=== PATIENT | female | born 1990 | race Caucasian/White ===

== ENCOUNTER 2018-06-20 10:42 | Inpatient (IN) | payer OTHER ==
[~2018-06-20] VITALS: Ht 182.9 cm; Wt 59.6 kg
[~2018-06-20 10:42] MED LIST: CAPE500T24 PO; DENO120V SC
[2018-06-20] MEDS ORDERED: POLYETHYLENE GLYCOL 17 GM PACKET PO PRN (12:30)
[2018-06-20] MEDS ORDERED: morphine SULFATE 10 MG/ML, 1ML IVPush PRN (12:30)
[2018-06-20] MEDS ORDERED: LABETALOL 5MG/ML, 20ML IVPush PRN (12:30)
[2018-06-20] MEDS ORDERED: OXYcodone IR 5MG TABLET PO PRN (12:30)
[2018-06-20] MEDS ORDERED: ENALAPRILAT 1.25 MG/ML, 2ML IVPush PRN (12:30)
[2018-06-20] MEDS: SODIUM CHLORIDE 0.9% 1,000 ML IV SCH ×2 (12:47→23:53)
[2018-06-20] MEDS: PLEASE ENTER HEIGHT AND WEIGHT MC SCH ×2 (13:00→15:32)
[2018-06-20] MEDS ORDERED: LORazepam 2 MG/ML, 1ML ONE (13:07)
[2018-06-20] MEDS ORDERED: FILTER 0.22 MICRON IV ONE (14:30)
[2018-06-20] MEDS: LORazepam 2 MG/ML, 1ML IVPush PRN (14:30)
[2018-06-20] MEDS ORDERED: PHENYTOIN SODIUM 1,000 MG in SODIUM CHLORIDE 0.9% 100 ML IV ONE (14:30)
[2018-06-20] MEDS: LEVETIRACETAM 1,000 MG in SODIUM CHLORIDE 0.9% 100 ML IV SCH (15:32)
[2018-06-20 18:39] VITALS: BP 110/50
[2018-06-21] MEDS: LEVETIRACETAM 1,000 MG in SODIUM CHLORIDE 0.9% 100 ML IV SCH ×2 (02:16→14:03)
[2018-06-21] MEDS: ONDANSETRON 2MG/ML, 2ML IVPush PRN ×3 (04:11→18:06)
[2018-06-21 04:23] LABS: BASOPHILS # (AUTO) 0.01 x10^3/uL (0-0.1); BASOPHILS % (AUTO) 0 % (0-1); EOSINOPHILS % (AUTO) 0 % (1-7); LYMPHOCYTES # (AUTO) 1.49 x10^3/uL (1-3.4); LYMPHOCYTES % (AUTO) 10 % (22-44); MD NO; MEAN CORPUSCULAR HEMOGLOBIN 28.8 pg (27.0-34.8); MEAN CORPUSCULAR HGB CONC 33.3 g/dL (32.4-35.8); MEAN CORPUSCULAR VOLUME 86.4 fL (80-100); MEAN PLATELET VOLUME 7.1 fL (7.4-10.4); MONOCYTES # (AUTO) 0.88 x10^3/uL (0.2-0.8); MONOCYTES % (AUTO) 6 % (2-9); NEUTROPHILS % (AUTO) 83 % (42-75); PLATELET COUNT 317 x10^3/uL (130-400); RED BLOOD COUNT 4.07 x10^6/uL (3.82-5.3); RED CELL DISTRIBUTION WIDTH 16.7 % (9.6-15.2)
[2018-06-21 04:35] LABS: ALBUMIN 3.9 g/dL (3.4-5.0); ANION GAP 7 mmol/L (5-15); CALCIUM 7.9 mg/dL (8.5-10.1); CHLORIDE 96 mmol/L (98-107)
[2018-06-21 04:38] LABS: ALANINE AMINOTRANSFERASE 31 U/L (12-78); ALKALINE PHOSPHATASE 102 U/L (45-117); BILIRUBIN,TOTAL 0.7 mg/dL (0.2-1.0); CREATININE 0.46 mg/dL (0.55-1.02); TOTAL PROTEIN 7.2 g/dL (6.4-8.2)
[2018-06-21 05:00] VITALS: BP 142/85
[2018-06-21] MEDS: SENNA/DOCUSATE TABLET PO SCH (09:00)
[2018-06-21] MEDS ORDERED: POTASSIUM CHLORIDE 20 MEQ in SODIUM CHLORIDE 0.9% 1,000 ML IV SCH (12:30)
[2018-06-21] MEDS: DEXAMETHASONE 4 MG/ML, 1ML IVPush SCH ×2 (14:03→19:32)
[2018-06-21] MEDS: POTASSIUM CHLORIDE 20 MEQ in SODIUM CHLORIDE 0.9% 1,000 ML IV SCH (16:46)
[2018-06-22] MEDS: DEXAMETHASONE 4 MG/ML, 1ML IVPush SCH ×4 (01:37→19:52)
[2018-06-22] MEDS: ONDANSETRON 2MG/ML, 2ML IVPush PRN ×3 (01:37→16:55)
[2018-06-22] MEDS: LEVETIRACETAM 1,000 MG in SODIUM CHLORIDE 0.9% 100 ML IV SCH ×2 (01:39→13:48)
[2018-06-22 04:00] VITALS: BP 140/87
[2018-06-22 04:26] LABS: BASOPHILS % (AUTO) 0 % (0-1); EOSINOPHILS % (AUTO) 0 % (1-7); LYMPHOCYTES # (AUTO) 1.19 x10^3/uL (1-3.4); LYMPHOCYTES % (AUTO) 11 % (22-44); MD NO; MEAN CORPUSCULAR HEMOGLOBIN 28.1 pg (27.0-34.8); MEAN CORPUSCULAR HGB CONC 32.8 g/dL (32.4-35.8); MEAN CORPUSCULAR VOLUME 85.8 fL (80-100); MEAN PLATELET VOLUME 7.4 fL (7.4-10.4); MONOCYTES # (AUTO) 0.83 x10^3/uL (0.2-0.8); MONOCYTES % (AUTO) 8 % (2-9); NEUTROPHILS # (AUTO) 8.97 x10^3/uL (1.8-6.8); NEUTROPHILS % (AUTO) 82 % (42-75); PLATELET COUNT 319 x10^3/uL (130-400); RED BLOOD COUNT 4.45 x10^6/uL (3.82-5.3); RED CELL DISTRIBUTION WIDTH 16.9 % (9.6-15.2)
[2018-06-22 04:32] LABS: ANION GAP 6 mmol/L (5-15); CALCIUM 8.2 mg/dL (8.5-10.1); CHLORIDE 107 mmol/L (98-107); CREATININE 0.55 mg/dL (0.55-1.02)
[2018-06-22] MEDS: POTASSIUM CHLORIDE 20 MEQ in SODIUM CHLORIDE 0.9% 1,000 ML IV SCH (06:44)
[2018-06-22] MEDS: SENNA/DOCUSATE TABLET PO SCH (07:43)
[2018-06-22] MEDS: HEPARIN 5,000 UNITS/ML, 1ML SQ SCH ×2 (10:21→18:00)
[2018-06-22] MEDS ORDERED: POTASSIUM CHLORIDE 20 MEQ TAB.ER.PRT PO ONE (11:00)
[2018-06-22 15:28] VITALS: BP 140/92
[2018-06-22] MEDS: ACETAMINOPHEN 325 MG TABLET PO PRN (19:52)
[2018-06-22] MEDS: LORazepam 2 MG/ML, 1ML IVPush PRN (20:30)
[2018-06-22 21:22] VITALS: BP 149/103
[2018-06-23] MEDS: LEVETIRACETAM 1,000 MG in SODIUM CHLORIDE 0.9% 100 ML IV SCH (01:07)
[2018-06-23 01:08] VITALS: BP 142/94
[2018-06-23] MEDS: DEXAMETHASONE 4 MG/ML, 1ML IVPush SCH ×3 (01:09→13:51)
[2018-06-23] MEDS: HEPARIN 5,000 UNITS/ML, 1ML SQ SCH ×3 (01:09→18:07)
[2018-06-23] MEDS: ONDANSETRON 2MG/ML, 2ML IVPush PRN ×4 (03:57→22:09)
[2018-06-23] MEDS: SENNA/DOCUSATE TABLET PO SCH (07:50)
[2018-06-23 08:05] VITALS: BP 140/96
[2018-06-23] MEDS: ACETAMINOPHEN 325 MG TABLET PO PRN (08:08)
[2018-06-23] MEDS: LEVETIRACETAM 500 MG TABLET PO SCH ×2 (10:08→22:09)
[2018-06-23 13:30] VITALS: BP 140/86
[2018-06-23] MEDS: LORazepam 2 MG/ML, 1ML IVPush PRN (19:25)
[2018-06-23 20:42] VITALS: BP 146/104
[2018-06-24 00:54] VITALS: BP 138/93
[2018-06-24] MEDS: HEPARIN 5,000 UNITS/ML, 1ML SQ SCH ×2 (02:17→07:53)
[2018-06-24] MEDS: ONDANSETRON 2MG/ML, 2ML IVPush PRN ×2 (03:52→13:15)
[2018-06-24] MEDS: SENNA/DOCUSATE TABLET PO SCH (07:53)
[2018-06-24] MEDS: LORazepam 2 MG/ML, 1ML IVPush PRN (07:53)
[2018-06-24] MEDS: LEVETIRACETAM 500 MG TABLET PO SCH (07:53)
[2018-06-24 07:55] VITALS: BP 146/95
[2018-06-24 13:15] VITALS: BP 147/98
[2018-06-24 14:23] VITALS: BP 144/93
[2018-06-24] MEDS ORDERED: OXYC5SOL8 PO (14:37)
[2018-06-24] MEDS ORDERED: ONDA4TAB13 SL (14:37)
[2018-06-24] MEDS ORDERED: LORA2ORA2 PO (14:37)
[2018-06-24] MEDS ORDERED: PROC5TAB40 PO (14:37)
[2018-06-24] MEDS ORDERED: DEXA4TAB66 PO (14:37)
[2018-06-24] MEDS ORDERED: LEVE500T53 PO (14:37)
== END 2018-06-24 16:00 | disposition home or self-care (01) | DRG 100 ==
LOC: CCU 12:00 → 3NW 06-22 15:02
PROVIDERS: ADMIT Internal Medicine; ATTEND Internal Medicine
DX: G40.209 Localization-related (focal) (partial) symptomatic epilepsy and epileptic syndromes with complex partial seizures, not intractable, without status epilepticus (principal); E43 Unspecified severe protein-calorie malnutrition; C79.49 Secondary malignant neoplasm of other parts of nervous system; C79.31 Secondary malignant neoplasm of brain; C79.51 Secondary malignant neoplasm of bone; C78.7 Secondary malignant neoplasm of liver and intrahepatic bile duct; B00.9 Herpesviral infection, unspecified; A60.9 Anogenital herpesviral infection, unspecified; D63.8 Anemia in other chronic diseases classified elsewhere; Z51.5 Encounter for palliative care; E55.9 Vitamin D deficiency, unspecified; F12.90 Cannabis use, unspecified, uncomplicated; H47.619 Cortical blindness, unspecified side of brain; H54.7 Unspecified visual loss; Z17.0 Estrogen receptor positive status [ER+]; Z79.899 Other long term (current) drug therapy; Z82.49 Family history of ischemic heart disease and other diseases of the circulatory system; Z82.5 Family history of asthma and other chronic lower respiratory diseases; Z85.3 Personal history of malignant neoplasm of breast; Z90.722 Acquired absence of ovaries, bilateral; Z87.81 Personal history of (healed) traumatic fracture
CPT/HCPCS: 36415; 70553; 80048; 80053; 83735; 85025; 87081; 95819; G0378; J1100; J1165; J1644; J1953; J2405; J3480; J2060; J2270; J7030

== ENCOUNTER 2018-07-21 07:50 | Inpatient (IN) | payer OTHER ==
[~2018-07-21] VITALS: Ht 185.4 cm; Wt 67.6 kg
[~2018-07-21 07:50] MED LIST changes: +DEXA4TAB66 PO; +LEVE500T53 PO; +LORA2ORA2 PO; +ONDA4TAB13 SL; +OXYC5SOL8 PO; +PROC5TAB40 PO
[2018-07-21 16:46] VITALS: BP 130/81
[2018-07-21] MEDS ORDERED: ACETAMINOPHEN 325 MG TABLET PO PRN (18:00)
[2018-07-21] MEDS ORDERED: LORazepam 2 MG/ML, 1ML IVPush PRN (18:00)
[2018-07-21] MEDS ORDERED: morphine SULFATE 10 MG/ML, 1ML IVPush PRN (18:00)
[2018-07-21] MEDS ORDERED: METO10TA2 PO (18:13)
[2018-07-21] MEDS ORDERED: DEXA10PO2 IV (18:13)
[2018-07-21] MEDS ORDERED: GABA250S3 PO (18:13)
[2018-07-21] MEDS ORDERED: LEVE100020 PO (18:13)
[2018-07-21] MEDS ORDERED: CYCL-259 PO (18:13)
[2018-07-21] MEDS ORDERED: LACO200V PO (18:13)
[2018-07-21] MEDS ORDERED: IBUP-1221 PO (18:13)
[2018-07-21] MEDS ORDERED: PANT40TA3 PO (18:13)
[2018-07-21] MEDS ORDERED: METOCLOPRAMIDE 5 MG/ML, 2ML IVPush PRN (19:00)
[2018-07-21] MEDS ORDERED: PROCHLORPERAZINE 5 MG/ML, 2ML IVPush PRN (19:00)
[2018-07-21 19:01] LABS: BASOPHILS # (AUTO) 0.05 x10^3/uL (0-0.1); BASOPHILS % (AUTO) 1 % (0-1); EOSINOPHILS # (AUTO) 0.06 x10^3/uL (0-0.4); EOSINOPHILS % (AUTO) 1 % (1-7); LYMPHOCYTES # (AUTO) 1.27 x10^3/uL (1-3.4); LYMPHOCYTES % (AUTO) 13 % (22-44); MD NO; MEAN CORPUSCULAR HGB CONC 33.6 g/dL (32.4-35.8); MEAN CORPUSCULAR VOLUME 86.5 fL (80-100); MEAN PLATELET VOLUME 6.8 fL (7.4-10.4); MONOCYTES # (AUTO) 0.86 x10^3/uL (0.2-0.8); MONOCYTES % (AUTO) 9 % (2-9); NEUTROPHILS # (AUTO) 7.43 x10^3/uL (1.8-6.8); NEUTROPHILS % (AUTO) 77 % (42-75); PLATELET COUNT 259 x10^3/uL (130-400); RED BLOOD COUNT 4.27 x10^6/uL (3.82-5.3); RED CELL DISTRIBUTION WIDTH 17.1 % (9.6-15.2)
[2018-07-21 19:11] LABS: ANION GAP 4 mmol/L (5-15); CALCIUM 8.4 mg/dL (8.5-10.1); CHLORIDE 106 mmol/L (98-107)
[2018-07-21] MEDS: LEVETIRACETAM 1,500 MG in SODIUM CHLORIDE 0.9% 100 ML IV SCH (20:07)
[2018-07-21] MEDS: LACOSAMIDE 50 MG in SODIUM CHLORIDE 0.9% 100 ML IV SCH (21:08)
[2018-07-21 21:27] VITALS: BP 128/83
[2018-07-22 00:28] VITALS: BP_SYST 147; BP_SYST 149; BP_DIAS 96; BP_DIAS 99
[2018-07-22 07:17] VITALS: BP 156/95
[2018-07-22] MEDS: DEXAMETHASONE 4 MG/ML, 1ML IVPush SCH ×2 (07:53→21:25)
[2018-07-22] MEDS: LEVETIRACETAM 1,500 MG in SODIUM CHLORIDE 0.9% 100 ML IV SCH ×2 (07:53→19:36)
[2018-07-22] MEDS: PANTOPRAZOLE 40 MG IV IVPush SCH (07:53)
[2018-07-22] MEDS: ONDANSETRON 2MG/ML, 2ML IVPush PRN (08:01)
[2018-07-22] MEDS: LACOSAMIDE 50 MG in SODIUM CHLORIDE 0.9% 100 ML IV SCH ×2 (09:58→21:25)
[2018-07-22] MEDS: METOCLOPRAMIDE 5 MG/ML, 2ML IVPush SCH ×2 (13:22→19:36)
[2018-07-22 13:48] VITALS: BP 124/75
[2018-07-22 20:35] VITALS: BP 132/77
[2018-07-23] MEDS: METOCLOPRAMIDE 5 MG/ML, 2ML IVPush SCH ×4 (01:40→20:19)
[2018-07-23] MEDS: HYDROCORTISONE CRM 1%, 30GM TP PRN (01:59)
[2018-07-23 02:02] VITALS: BP 118/79
[2018-07-23 05:32] LABS: ALANINE AMINOTRANSFERASE 173 U/L (12-78); ALBUMIN 2.8 g/dL (3.4-5.0); ANION GAP 6 mmol/L (5-15); CALCIUM 8.9 mg/dL (8.5-10.1); CHLORIDE 106 mmol/L (98-107); CREATININE 0.48 mg/dL (0.55-1.02)
[2018-07-23 05:33] LABS: BASOPHILS # (AUTO) 0.03 x10^3/uL (0-0.1); BASOPHILS % (AUTO) 0 % (0-1); EOSINOPHILS % (AUTO) 0 % (1-7); LYMPHOCYTES # (AUTO) 0.83 x10^3/uL (1-3.4); LYMPHOCYTES % (AUTO) 6 % (22-44); MD NO; MEAN CORPUSCULAR HEMOGLOBIN 29.1 pg (27.0-34.8); MEAN CORPUSCULAR HGB CONC 33.5 g/dL (32.4-35.8); MEAN CORPUSCULAR VOLUME 86.9 fL (80-100); MEAN PLATELET VOLUME 7.1 fL (7.4-10.4); MONOCYTES # (AUTO) 0.74 x10^3/uL (0.2-0.8); MONOCYTES % (AUTO) 5 % (2-9); NEUTROPHILS # (AUTO) 12.23 x10^3/uL (1.8-6.8); NEUTROPHILS % (AUTO) 88 % (42-75); PLATELET COUNT 288 x10^3/uL (130-400); RED BLOOD COUNT 4.51 x10^6/uL (3.82-5.3); RED CELL DISTRIBUTION WIDTH 16.9 % (9.6-15.2)
[2018-07-23 05:35] LABS: ALKALINE PHOSPHATASE 169 U/L (45-117); BILIRUBIN,TOTAL 0.3 mg/dL (0.2-1.0); TOTAL PROTEIN 6.9 g/dL (6.4-8.2)
[2018-07-23 07:37] VITALS: BP 109/75
[2018-07-23] MEDS: LEVETIRACETAM 1,500 MG in SODIUM CHLORIDE 0.9% 100 ML IV SCH ×2 (08:11→20:19)
[2018-07-23] MEDS: PANTOPRAZOLE 40 MG IV IVPush SCH (08:11)
[2018-07-23] MEDS: ONDANSETRON 2MG/ML, 2ML IVPush PRN ×2 (08:11→17:37)
[2018-07-23] MEDS: DEXAMETHASONE 4 MG/ML, 1ML IVPush SCH ×2 (08:12→21:26)
[2018-07-23] MEDS: ACETAMINOPHEN 650 MG/20.3 ML UDC PO PRN (08:31)
[2018-07-23] MEDS: LACOSAMIDE 50 MG in SODIUM CHLORIDE 0.9% 100 ML IV SCH ×2 (09:48→21:26)
[2018-07-23 13:24] VITALS: BP 124/79
[2018-07-23 19:35] LABS: MICROSCOPIC NOT IND
[2018-07-23 19:41] LABS: CULTURE INDICATED? NO
[2018-07-23 20:54] VITALS: BP 140/97
[2018-07-24] MEDS: METOCLOPRAMIDE 5 MG/ML, 2ML IVPush SCH ×4 (01:43→20:07)
[2018-07-24 01:46] VITALS: BP 124/81
[2018-07-24 07:02] VITALS: BP 124/84
[2018-07-24] MEDS: PANTOPROZOLE 40MG TABLET PO SCH ×2 (07:30→08:02)
[2018-07-24] MEDS: DEXAMETHASONE 4 MG/ML, 1ML IVPush SCH ×2 (08:00→20:07)
[2018-07-24] MEDS: LEVETIRACETAM 1,500 MG in SODIUM CHLORIDE 0.9% 100 ML IV SCH ×2 (08:02→20:07)
[2018-07-24] MEDS: LACOSAMIDE 50 MG in SODIUM CHLORIDE 0.9% 100 ML IV SCH ×2 (11:29→22:47)
[2018-07-24] MEDS: ONDANSETRON 2MG/ML, 2ML IVPush PRN (12:51)
[2018-07-24 14:40] VITALS: BP 118/77
[2018-07-24 21:50] VITALS: BP 143/102
[2018-07-24] MEDS: ACETAMINOPHEN 650 MG/20.3 ML UDC PO PRN (22:00)
[2018-07-24 23:00] VITALS: BP 138/79
[2018-07-25] MEDS: METOCLOPRAMIDE 5 MG/ML, 2ML IVPush SCH ×4 (01:53→20:23)
[2018-07-25 02:00] VITALS: BP 132/89
[2018-07-25] MEDS ORDERED: PANTOPRAZOLE 40 MG IV IVPush SCH (06:00)
[2018-07-25 06:42] VITALS: BP 137/96
[2018-07-25] MEDS ORDERED: ERGOCALCIFEROL 50,000 UNIT CAPSULE PO SCH (08:00)
[2018-07-25] MEDS: LEVETIRACETAM 1,500 MG in SODIUM CHLORIDE 0.9% 100 ML IV SCH ×2 (08:53→20:23)
[2018-07-25] MEDS: DEXAMETHASONE 4 MG/ML, 1ML IVPush SCH ×2 (08:54→20:23)
[2018-07-25] MEDS: LACOSAMIDE 50 MG in SODIUM CHLORIDE 0.9% 100 ML IV SCH ×2 (10:14→21:28)
[2018-07-25] MEDS: HYDROCORTISONE CRM 1%, 30GM TP PRN (20:23)
[2018-07-25 20:41] VITALS: BP 135/89
[2018-07-26] MEDS: METOCLOPRAMIDE 5 MG/ML, 2ML IVPush SCH ×4 (01:59→21:33)
[2018-07-26 02:10] VITALS: BP 121/77
[2018-07-26] MEDS: PANTOPROZOLE 40MG TABLET PO SCH (06:46)
[2018-07-26 07:30] VITALS: BP 118/76
[2018-07-26] MEDS ORDERED: DEXAMETHASONE 4 MG/ML, 1ML ONE (09:07)
[2018-07-26] MEDS: LEVETIRACETAM 1,500 MG in SODIUM CHLORIDE 0.9% 100 ML IV SCH ×2 (10:09→23:27)
[2018-07-26] MEDS: LACOSAMIDE 50 MG in SODIUM CHLORIDE 0.9% 100 ML IV SCH ×2 (11:25→22:38)
[2018-07-26 12:14] VITALS: BP 121/72
[2018-07-26] MEDS: HYDROCORTISONE CRM 1%, 30GM TP PRN (15:36)
[2018-07-26 19:32] VITALS: BP 125/85
[2018-07-26] MEDS: DEXAMETHASONE 4 MG/ML, 1ML IVPush SCH (21:33)
[2018-07-27 01:00] VITALS: BP 102/67
[2018-07-27] MEDS: METOCLOPRAMIDE 5 MG/ML, 2ML IVPush SCH (04:12)
[2018-07-27 08:00] VITALS: BP 116/72
[2018-07-27] MEDS: PANTOPROZOLE 40MG TABLET PO SCH (09:23)
[2018-07-27] MEDS: DEXAMETHASONE 4 MG/ML, 1ML IVPush SCH (09:23)
[2018-07-27] MEDS: LACOSAMIDE 50 MG in SODIUM CHLORIDE 0.9% 100 ML IV SCH (10:10)
[2018-07-27] MEDS ORDERED: LEVETIRACETAM 100 MG/ML ORAL SOL PO SCH (10:30)
[2018-07-27] MEDS ORDERED: METOCLOPRAMIDE 10 MG PO SCH (11:30)
[2018-07-27] MEDS ORDERED: LEVE100S PO (11:39)
[2018-07-27] MEDS ORDERED: ERGO500017 PO (11:39)
[2018-07-27] MEDS ORDERED: LACOSAMIDE PO (11:39)
[2018-07-27] MEDS ORDERED: METOCLOPRAMIDE PO (11:39)
[2018-07-27] MEDS ORDERED: METOCLOPRAMIDE 5 MG/ML, 2ML IVPush ONE (12:00)
[2018-07-27] MEDS ORDERED: DEXA4TAB66 PO (13:58)
[2018-07-27] MEDS ORDERED: LACOSAMIDE 50 MG PO SCH (21:00)
== END 2018-07-27 16:16 | disposition hospice, home (50) | DRG 100 ==
LOC: 3NW 16:37
PROVIDERS: ADMIT Internal Medicine; ATTEND Internal Medicine
DX: G40.909 Epilepsy, unspecified, not intractable, without status epilepticus (principal); E43 Unspecified severe protein-calorie malnutrition; C79.49 Secondary malignant neoplasm of other parts of nervous system; C79.32 Secondary malignant neoplasm of cerebral meninges; C79.51 Secondary malignant neoplasm of bone; C78.7 Secondary malignant neoplasm of liver and intrahepatic bile duct; C50.919 Malignant neoplasm of unspecified site of unspecified female breast; H54.7 Unspecified visual loss; D63.8 Anemia in other chronic diseases classified elsewhere; E55.9 Vitamin D deficiency, unspecified; Z51.5 Encounter for palliative care; Z66 Do not resuscitate; Z92.3 Personal history of irradiation
CPT/HCPCS: 36415; 71045; 80048; 80053; 81003; 82306; 83735; 84100; 85025; 93005; C9254; G0378; J1100; J1953; J2405; C9113; J2765